=== PATIENT | female | born 1960 | race Caucasian/White ===

== ENCOUNTER 2016-12-26 10:40 | Day surgery (SDC) | payer BC ==
[~2016-12-26 10:40] MED LIST: Acetaminophen TAB* 325 MG PO PRN; Buffered Lidocaine 1% SYR 3ML* 3 ML/SYR SYRINGE INTRADERM ONE
[2016-12-26] MEDS ORDERED: Trypan Blue 0.06% SOL* 0.5 ML BTL ONE (11:31)
[2016-12-26] MEDS ORDERED: Midazolam* 1 MG/ML 5 ML VIAL (5 MG) ONE (11:43)
[2016-12-26] MEDS ORDERED: acetaZOLAMIDE TAB* 250 MG ONE (14:07)
[2016-12-26] MEDS ORDERED: Neomycin/Polymy/Dex OPTH.SUSP* MAXITROL 0.1% 5 ML ONE (14:07)
[2016-12-26] MEDS ORDERED: Proparacaine 0.5% OPHTH.SOL* 15 ML BTL ONE (14:07)
[2016-12-26] MEDS ORDERED: Povidone Iodine 5% OPTH* 30 ML BTL ONE (14:07)
[2016-12-26] MEDS ORDERED: Phenylephrine 2.5% OPTH.SOL* 2 ML BTL ONE (14:07)
[2016-12-26] MEDS ORDERED: Lidocaine 2% EPI 1:200000 MPF* 20 ML VIAL ONE (14:07)
[2016-12-26] MEDS ORDERED: Flurbiprofen 0.03% OPTH.SOL* 2.5 ML BTL ONE (14:07)
[2016-12-26] MEDS ORDERED: Cyclopentolate 1% OPTH.SOL* 2 ML BTL ONE (14:07)
[2016-12-26] MEDS ORDERED: Lidocaine 1% MPF* 2 ML VIAL ONE (14:07)
[2016-12-26 15:20] VITALS: BP 110/65
--- NOTE | 2016-12-26 22:25 | OP ---
DATE OF OPERATION: 12/26/16 - [facility] DATE OF : 56 SURGEON: Quan Felipe M.D. PREOPERATIVE DIAGNOSIS: Cataract, left eye. POSTOPERATIVE DIAGNOSIS: Cataract, left eye. OPERATIVE PROCEDURE: Phacoemulsification, left eye with IOL. DESCRIPTION OF PROCEDURE: The patient was brought to the operating room after being given 1/2% Alcaine with epinephrine drops in the preoperative area. The eye was prepped and draped in the usual sterile fashion. Sterile drape and eyelid speculum were placed. Again, topical 1/2% Alcaine with epinephrine was given. A paracentesis incision was made at the 3 o'clock position with the No.75 blade. Clear cornea incision 2.2 x 2.2-mm was created at the 6 o'clock position starting at the anterior limbus using the 2.2-mm keratome. The anterior chamber was irrigated with 0.4 mL of 1% non-preservative intracameral lidocaine and filled with DisCoVisc. A capsulorrhexis was completed using the cystotome and the Utrata forceps. Hydrodissection was performed with balanced salt solution. The lens nucleus was removed with the Phacoemulsification handpiece without incident. Cortex was removed with the irrigation-aspiration handpiece. The capsular bag was re-inflated using DisCoVisc and an [id number] implant was inserted with the shooter. VisionBlue was used to stain the anterior capsule prior to capsulorrhexis because there was a nearly white cataract. The irrigation-aspiration handpiece was used to remove all residual DisCoVisc. The eye was refilled with balanced salt solution and the wound checked and found to be watertight. Topical Maxitrol drops were given. Indication for complex cataract surgery: White cataract requiring capsular stain. [id number]/[facility] #: [id number] MTDRohini
== END 2016-12-26 14:49 | disposition home or self-care (01) ==
LOC: OREAST 10:40
PROVIDERS: ATTEND Specialist
DX: H25.812 Combined forms of age-related cataract, left eye (principal)
CPT/HCPCS: A9270-GY; J2250; V2632

== ENCOUNTER 2017-01-02 08:28 | Day surgery (SDC) | payer BC ==
[~2017-01-02 08:28] MED LIST changes: +Cyclopentolate 1% OPTH.SOL* 2 ML BTL ONE; +Flurbiprofen 0.03% OPTH.SOL* 2.5 ML BTL ONE; +Lidocaine 1% MPF* 2 ML VIAL ONE; +Lidocaine 2% EPI 1:200000 MPF* 20 ML VIAL ONE; +Neomycin/Polymy/Dex OPTH.SUSP* MAXITROL 0.1% 5 ML ONE; +Phenylephrine 2.5% OPTH.SOL* 2 ML BTL ONE; +Povidone Iodine 5% OPTH* 30 ML BTL ONE; +Proparacaine 0.5% OPHTH.SOL* 15 ML BTL ONE; +acetaZOLAMIDE TAB* 250 MG ONE
[2017-01-02] MEDS ORDERED: Trypan Blue 0.06% SOL* 0.5 ML BTL ONE (11:05)
[2017-01-02] MEDS ORDERED: Midazolam* 1 MG/ML 2 ML VIAL (2 MG) ONE ×2 (11:14→11:20)
[2017-01-02 12:00] VITALS: BP 101/65
--- NOTE | 2017-01-02 23:51 | OP ---
DATE OF OPERATION: 01/02/17 [facility] DATE OF : 56 SURGEON: Quan Felipe MD PREOPERATIVE DIAGNOSIS: Cataract, right eye. POSTOPERATIVE DIAGNOSIS: Cataract, right eye. OPERATIVE PROCEDURE: Phacoemulsification, right eye with IOL. DESCRIPTION OF PROCEDURE: The patient was brought to the operating room after being given 1/2% Alcaine with epinephrine drops in the preoperative area. The eye was prepped and draped in the usual sterile fashion. Sterile drape and eyelid speculum were placed. Again, topical 1/2% Alcaine with epinephrine was given. A paracentesis incision was made at the 9 o'clock position with the No.75 blade. Clear cornea incision 2.2 x 2.2-mm was created at the 12 o'clock position starting at the anterior limbus using the 2.2-mm keratome. The anterior chamber was irrigated with 0.4 mL of 1% non-preservative intracameral lidocaine and filled with DisCoVisc. A capsulorrhexis was completed using the cystotome and the Utrata forceps. Hydrodissection was performed with balanced salt solution. The lens nucleus was removed with the Phacoemulsification handpiece without incident. Cortex was removed with the irrigation-aspiration handpiece. The capsular bag was re-inflated using DisCoVisc and an [id number] implant was inserted with the shooter. The irrigation-aspiration handpiece was used to remove all residual DisCoVisc. The eye was refilled with balanced salt solution and the wound checked and found to be watertight. Topical Maxitrol drops were given. The VisionBlue was used to stain the anterior capsule prior to capsulorrhexis. The indication for complex cataract surgery is white cataract requiring capsular stain. [id number]/[facility] #: [id number] MTDD
== END 2017-01-02 11:56 | disposition home or self-care (01) ==
LOC: OREAST 08:28
PROVIDERS: ATTEND Specialist
DX: H25.811 Combined forms of age-related cataract, right eye (principal)
CPT/HCPCS: A9270-GY; J2250; V2632

== ENCOUNTER 2017-07-30 16:46 | Observation (INO) | payer BC ==
[2017-07-30] MEDS ORDERED: Ondansetron INJ* 2 MG/ML VIAL IV ONE (19:33)
[2017-07-30] MEDS ORDERED: Morphine INJ* 4 MG/ML 1 ML CARPUJECT IV ONE (19:33)
[2017-07-30] MEDS ORDERED: Acetaminophen TAB* 325 MG PO ONE (19:33)
[2017-07-30] MEDS ORDERED: Piperacillin/Tazobac ADVAN(*) 3.375 GM in NS 0.9% 100 ML* 100 ML IVPB ONE (19:35)
[2017-07-30 19:59] LABS: Urine Bacteria Absent (Absent); Urine Bilirubin Negative (Negative); Urine Glucose Negative (Negative); Urine Nitrite Negative (Negative)
[2017-07-30 20:09] LABS: Hematocrit 39 % (35-47); Mean Corpuscular HGB Conc 33 g/dl (31-36); Mean Corpuscular Hemoglobin 30 pg (27-31); Mean Corpuscular Volume 89 fL (80-97); Mean Platelet Volume 7 um3 (7.4-10.4); Red Blood Count 4.38 10^6/ul (4.0-5.4); Red Cell Distribution Width 13 % (10.5-15); White Blood Count 19.2 10^3/ul (3.5-10.8)
[2017-07-30 20:24] LABS: BUN/Creatinine Ratio 16.5 (8-20); C Reactive Protein 180.42 mg/L (< 5.00); Calcium 9.5 mg/dL (8.6-10.3); EGFR African American 88.3 (>60); EGFR Non-African American 68.7 (>60); Globulin 3.6 g/dL (2-4); Magnesium 1.9 mg/dL (1.9-2.7); Potassium 3.6 mmol/L (3.5-5.0); Total Bilirubin 0.6 mg/dL (0.2-1.0); Total Protein 7.6 g/dL (6.4-8.9)
[2017-07-30] MEDS: NS 0.9% 1000 ML* 2,000 ML IV ONE ×2 (20:38→22:08)
[2017-07-30] MEDS ORDERED: Ondansetron INJ* 2 MG/ML VIAL ONE (20:54)
[2017-07-30] MEDS ORDERED: Iohexol 300* (CONTRAST) 10 ML SDV IV ONE (21:10)
--- NOTE | 2017-07-30 22:28 | RAD ---
INDICATION: Right lower quadrant abdominal pain. COMPARISON: There are no prior studies available for comparison. TECHNIQUE: A CT scan of the abdomen and pelvis was performed with intravenous and oral contrast following intravenous injection of 87 ml of Omnipaque 300 nonionic contrast. Contiguous axial sections were obtained from the lung bases through the symphysis pubis. Images were reconstructed in the coronal and sagittal planes. FINDINGS: The lung bases are clear. No pleural effusion is present. The liver and spleen are normal in size. There is a small hypodense lesion in the lateral segment of the left hepatic lobe measures 0.7 cm in size which is too small to characterize by CT possibly representing a small cyst. No calcified gallstones are seen. The pancreas appears to be within normal limits. The kidneys and adrenal glands are normal in size. No hydronephrosis is seen. No significant focal renal abnormality is seen. The aorta is normal in caliber and demonstrates homogeneous contrast opacification. No significant enlarged retroperitoneal lymph nodes are seen. The stomach, small and large bowel appear nondistended. There is an inflammatory process present in the right lower quadrant. There is circumferential thickening of the wall of the terminal ileum stranding in the surrounding mesenteric fat. There is an appendicolith present adjacent to the cecum. The appendix is dilated with mild wall enhancement and poor definition of the wall. These findings are suspicious for a ruptured appendicitis. There is a small amount of ascites in the right lower quadrant and dependently within the pelvis. No free to peritoneal air is seen. No abscess is noted. The uterus is anteverted and normal in size. No significant focal osseous abnormality is seen. The results of this exam were discussed with the referring clinician. IMPRESSION: INFLAMMATORY PROCESS IN THE RIGHT LOWER QUADRANT MOST CONSISTENT WITH A RUPTURED APPENDICITIS.
[2017-07-30] MEDS ORDERED: NS 0.9% 1000 ML* 1,000 ML IV ONE (22:45)
[2017-07-30] MEDS ORDERED: ceFOXitin 2 GM IVPREMIX* 2 GM/50 ML BAG ONE (23:18)
--- NOTE | 2017-07-30 23:18 | ED ---
Cassy Foss Rebecca, scribed for Saloni Dumont MD on 07/30/17 at 1930 . Abdominal Pain/Female - HPI Summary HPI Summary: Pt is a 56 y/o F who presents to ED c/o abdominal pain. Sx began 2 days ago and have improved since onset. Initially, pain was severe and diffuse, that she could feel "working through the intestines," though now it has localized to the RLQ. Described as "intestinal pain" and ranked 8/10. Sx aggravated by movement, alleviated by nothing. Additionally c/o decreased appetite and subjective fever. Denies N/V/D, constipation. Last BM was yesterday. PSHx ectopic s/p tubal ligation, unsure of the side. No PMHx IBS. Last colonoscopy was 7-8 years ago. - History of Current Complaint Chief Complaint: EDAbdPain Stated Complaint: ABD PAIN/BLOATING Time Seen by Provider: 07/30/17 19:21 Hx Obtained From: Patient Onset/Duration: Lasting Days - 2 days, Still Present Severity Initially: Severe Severity Currently: Severe Pain Intensity: 8 Pain Scale Used: 0-10 Numeric Location: Discrete At: RLQ Character: Other: - "intestinal" Aggravating Factor(s): Movement Alleviating Factor(s): Nothing Associated Signs and Symptoms: Positive: Fever, Decreased Appetite. Negative: Nausea, Vomiting, Diarrhea Allergies/Adverse Reactions: Allergies Allergy/AdvReac Type Severity Reaction Status Date / Time Gabapentin [From Neurontin] Allergy Severe GI Upset, Verified 07/30/17 19:33 very severe headache PMH/Surg Hx/FS Hx/Imm Hx Endocrine/Hematology History: Denies: Hx Anticoagulant Therapy, Hx Diabetes, Hx Thyroid Disease Cardiovascular History: Reports: Hx Angina Denies: Hx Hypertension, Hx Pacemaker/ICD Respiratory History: Reports: Hx Asthma - as child- out grew Denies: Hx Chronic Obstructive Pulmonary Disease (COPD) GI History: Denies: Hx Irritable Bowel History: Denies: Hx Renal Disease Musculoskeletal History: Reports: Hx Arthritis - minor Sensory History: Reports: Hx Cataracts - both eyes Denies: Hx Contacts or Glasses, Hx Hearing Aid Opthamlomology History: Reports: Hx Cataracts - both eyes Denies: Hx Contacts or Glasses Neurological History: Reports: Hx Migraine - in the past Denies: Hx Dementia, Hx Seizures Psychiatric History: Reports: Hx Anxiety - in the past, cumulative stress - resolved, Hx Depression - resolved Denies: Hx Substance Abuse - Surgical History Surgery Procedure, Year, and Place: tubal ligation. tubal Hx Anesthesia Reactions: Yes - extreme nausea Infectious Disease History: No Infectious Disease History: Reports: Hx of Known/Suspected MRSA Denies: Hx Hepatitis, Hx Human Immunodeficiency Virus (HIV), Traveled Outside the [place] in Last 30 Days - Family History Known Family History: Negative: Diabetes - Social History Alcohol Use: Rare Substance Use Type: Reports: None Smoking Status (MU): Never Smoked Tobacco Review of Systems Positive: Fever Positive: Abdominal Pain, Other - Decreased appetite; NEGATIVE: Constipation. Negative: Vomiting, Diarrhea, Nausea All Other Systems Reviewed And Are Negative: Yes Physical Exam - Summary Physical Exam Summary: VITAL SIGNS: Reviewed. GENERAL: ~Patient is a well-developed and nourished female who is lying comfortable in the stretcher. Patient is not in any acute respiratory distress. HEAD AND FACE: No signs of trauma. No ecchymosis, hematomas or skull depressions. No sinus tenderness. EYES: PERRLA, EOMI x 2, No injected conjunctiva, no nystagmus. EARS: Hearing grossly intact. Ear canals and tympanic membranes are within normal limits. MOUTH: Oropharynx within normal limits. NECK: Supple, trachea is midline, no adenopathy, no JVD, no carotid bruit, no c- spine tenderness, neck with full ROM. CHEST: Symmetric, no tenderness at palpation LUNGS: Clear to auscultation bilaterally. No wheezing or crackles. CVS: Regular rate and rhythm, S1 and S2 present, no murmurs or gallops appreciated. ABDOMEN: Soft with RLQ tenderness. No signs of distention. No rebound no guarding, and no masses palpated. Bowel sounds are normal. EXTREMITIES: FROM in all major joints, no edema, no cyanosis or clubbing. NEURO: Alert and oriented x 3. No acute neurological deficits. Speech is normal and follows commands. SKIN: Dry and warm Triage Information Reviewed: Yes Vital Signs On Initial Exam: Initial Vitals Temp Pulse Resp BP Pulse Ox 99.0 F 82 16 133/83 100 07/30/17 16:49 07/30/17 16:49 07/30/17 16:49 07/30/17 16:49 07/30/17 16:49 Vital Signs Reviewed: Yes Diagnostics - Vital Signs Vital Signs Temp Pulse Resp BP Pulse Ox 07/30/17 16:49 99.0 F 82 16 133/83 100 - Laboratory Lab Results: Lab Results 07/30/17 07/30/17 07/30/17 Range/Units 19:20 19:50 19:50 WBC (3.5-10.8) 10^3/ul RBC (4.0-5.4) 10^6/ul Hgb (12.0-16.0) g/dl Hct (35-47) % MCV (80-97) fL MCH (27-31) pg MCHC (31-36) g/dl RDW (10.5-15) % Plt Count (150-450) 10^3/ul MPV (7.4-10.4) um3 Neut % (Auto) (38-83) % Lymph % (Auto) (25-47) % Spencer % (Auto) (1-9) % Eos % (Auto) (0-6) % Baso % (Auto) (0-2) % Absolute Neuts (auto) (1.5-7.7) 10^3/ul Absolute Lymphs (auto) (1.0-4.8) 10^3/ul Absolute Monos (auto) (0-0.8) 10^3/ul Absolute Eos (auto) (0-0.6) 10^3/ul Absolute Basos (auto) (0-0.2) 10^3/ul Absolute Nucleated RBC 10^3/ul Nucleated RBC % INR (Anticoag Therapy) 1.10 H (0.77-1.02) APTT 29.5 (26.0-36.3) seconds Sodium 133 (133-145) mmol/L Potassium 3.6 (3.5-5.0) mmol/L Chloride 99 L (101-111) mmol/L Carbon Dioxide 25 (22-32) mmol/L Anion Gap 9 (2-11) mmol/L BUN 14 (6-24) mg/dL Creatinine 0.85 (0.51-0.95) mg/dL Est GFR ( Amer) 88.3 (>60) Est GFR (Non-Af Amer) 68.7 (>60) BUN/Creatinine Ratio 16.5 (8-20) Glucose 125 H (70-100) mg/dL Lactic Acid (0.5-2.0) mmol/L Calcium 9.5 (8.6-10.3) mg/dL Magnesium 1.9 (1.9-2.7) mg/dL Total Bilirubin 0.60 (0.2-1.0) mg/dL AST 14 (13-39) U/L ALT 12 (7-52) U/L Alkaline Phosphatase 55 (34-104) U/L Total Creatine Kinase 61 (10-223) U/L C-Reactive Protein 180.42 H (< 5.00) mg/L Total Protein 7.6 (6.4-8.9) g/dL Albumin 4.0 (3.2-5.2) g/dL Globulin 3.6 (2-4) g/dL Albumin/Globulin Ratio 1.1 (1-3) Amylase 42 (29-103) U/L Lipase 12 (11.0-82.0) U/L Urine Color Yellow Urine Appearance Cloudy Urine pH 5.0 (5-9) Ur Specific [place] 1.026 (1.010-1.030) Urine Protein 2+(100 mg/dl) H (Negative) Urine Ketones 1+ H (Negative) Urine Blood 3+ H (Negative) Urine Nitrate Negative (Negative) Urine Bilirubin Negative (Negative) Urine Urobilinogen Negative (Negative) Ur Leukocyte Esterase 1+ H (Negative) Urine WBC (Auto) 1+(6-10/hpf) H (Absent) Urine RBC (Auto) 3+(>10/hpf) H (Absent) Ur Squamous Epith Cells Present H (Absent) Urine Bacteria Absent (Absent) Urine Glucose Negative (Negative) Blood Type Antibody Screen 07/30/17 07/30/17 07/30/17 Range/Units 19:50 19:50 19:50 WBC 19.2 H (3.5-10.8) 10^3/ul RBC 4.38 (4.0-5.4) 10^6/ul Hgb 13.0 (12.0-16.0) g/dl Hct 39 (35-47) % MCV 89 (80-97) fL MCH 30 (27-31) pg MCHC 33 (31-36) g/dl RDW 13 (10.5-15) % Plt Count 250 (150-450) 10^3/ul MPV 7 L (7.4-10.4) um3 Neut % (Auto) 84.3 H (38-83) % Lymph % (Auto) 7.9 L (25-47) % Spencer % (Auto) 7.7 (1-9) % Eos % (Auto) 0 (0-6) % Baso % (Auto) 0.1 (0-2) % Absolute Neuts (auto) 16.1 H (1.5-7.7) 10^3/ul Absolute Lymphs (auto) 1.5 (1.0-4.8) 10^3/ul Absolute Monos (auto) 1.5 H (0-0.8) 10^3/ul Absolute Eos (auto) 0 (0-0.6) 10^3/ul Absolute Basos (auto) 0 (0-0.2) 10^3/ul Absolute Nucleated RBC 0 10^3/ul Nucleated RBC % 0 INR (Anticoag Therapy) (0.77-1.02) APTT (26.0-36.3) seconds Sodium (133-145) mmol/L Potassium (3.5-5.0) mmol/L Chloride (101-111) mmol/L Carbon Dioxide (22-32) mmol/L Anion Gap (2-11) mmol/L BUN (6-24) mg/dL Creatinine (0.51-0.95) mg/dL Est GFR ( Amer) (>60) Est GFR (Non-Af Amer) (>60) BUN/Creatinine Ratio (8-20) Glucose (70-100) mg/dL Lactic Acid 1.1 (0.5-2.0) mmol/L Calcium (8.6-10.3) mg/dL Magnesium (1.9-2.7) mg/dL Total Bilirubin (0.2-1.0) mg/dL AST (13-39) U/L ALT (7-52) U/L Alkaline Phosphatase (34-104) U/L Total Creatine Kinase (10-223) U/L C-Reactive Protein (< 5.00) mg/L Total Protein (6.4-8.9) g/dL Albumin (3.2-5.2) g/dL Globulin (2-4) g/dL Albumin/Globulin Ratio (1-3) Amylase (29-103) U/L Lipase (11.0-82.0) U/L Urine Color Urine Appearance Urine pH (5-9) Ur Specific [place] (1.010-1.030) Urine Protein (Negative) Urine Ketones (Negative) Urine Blood (Negative) Urine Nitrate (Negative) Urine Bilirubin (Negative) Urine Urobilinogen (Negative) Ur Leukocyte Esterase (Negative) Urine WBC (Auto) (Absent) Urine RBC (Auto) (Absent) Ur Squamous Epith Cells (Absent) Urine Bacteria (Absent) Urine Glucose (Negative) Blood Type A Positive Antibody Screen Pending Result Diagrams: 07/30/17 19:50 07/30/17 19:50 Lab Statement: Any lab studies that have been ordered have been reviewed, and results considered in the medical decision making process. - CT CT Abd/Pel CT Interpretation: Positive (See Comments) - INFLAMMATORY PROCESS IN THE RIGHT LOWER QUADRANT MOST CONSISTENT WITH A RUPTURED APPENDICITIS. Dr. Dumont reviewed this radiology report. CT Interpretation Completed By: Radiologist - EKG 2256 Cardiac Rate: NL EKG Rhythm: Sinus Rhythm ST Segment: Non-Specific EKG Interpretation: 76 bpm. Non-specific T wave changes. Normal axis. Normal interval. Re-Evaluation - Re-Evaluation First Eval Re-Evaluation Time: 22:45 Comment: Discussed CT reuslts and plan to go ot the O.R. Abdominal Pain Fem Course/Dx - Course Course Of Treatment: Pt is a 56 y/o F who presents to ED c/o abdominal pain for 2 days ago, improving since onset. Initially, pain was severe and diffuse, now localized to the RLQ. Described as "intestinal pain" and ranked 8/10. Sx aggravated by movement. Additionally c/o decreased appetite and subjective fever. Denies N/V/D, constipation. Last BM was yesterday. PSHx ectopic s/p tubal ligation, unsure of the side. No PMHx IBS. CT Abd/Pel reveals an inflammatory process in the RLQ, likely indicative of a ruptured appendicitis. Discussed care of pt with Dr. Del Castillo who accepts pt with Dx of appendicitis. Allergy noted. - Diagnoses Provider Diagnoses: Perforated appendicitis - Provider Notifications Discussed Care Of Patient With: Sinan Del Castillo Time Discussed With Above Provider: 22:27 Instructed by Provider To: Other - Will call back after the CT report is in. Called back at 2245 and he accepts the pt for admission to the O.R. Discharge - Discharge Plan Condition: Stable Disposition: ADMITTED TO [facility] Referrals: Ras Rico MD [Primary Care Provider] - The documentation as recorded by the Cassy joel Rebecca accurately reflects the service I personally performed and the decisions made by me, Saloni Dumont MD.
[2017-07-30] MEDS ORDERED: Sodium Citrate/Citric Acid* 15 ML UDC ONE (23:33)
[2017-07-30] MEDS ORDERED: Propofol* 10 MG/ML 20 ML BTL IV PUSH ONE (23:42)
[2017-07-30] MEDS ORDERED: Lidocaine 2% PF * 5 ML VIAL ONE (23:42)
[2017-07-30] MEDS ORDERED: Cisatracurium* 2 MG/ML MDV 5 ML ONE (23:43)
[2017-07-30] MEDS ORDERED: fentaNYL* 50 MCG/ML 2 ML VIAL (100 MCG VIAL) ONE (23:44)
[2017-07-30] MEDS ORDERED: Bupivacaine 0.5% SDV PF* 30 ML VIAL ONE (23:46)
[2017-07-31] MEDS ORDERED: fentaNYL* 50 MCG/ML 2 ML VIAL (100 MCG VIAL) IV PRN (00:22)
[2017-07-31] MEDS ORDERED: Ketorolac INJ* 30 MG/ML 1 ML VIAL IV PRN (00:22)
[2017-07-31] MEDS ORDERED: DiMENhydriNATE IV* 50 MG/ML VIAL IV PUSH PRN (00:22)
[2017-07-31] MEDS ORDERED: Glycopyrrolate IV* 0.2 MG/ML 1 ML VIAL ONE (00:23)
[2017-07-31] MEDS ORDERED: Neostigmine Methylsulfate* 2 MG/2 ML SYRINGE ONE (00:23)
[2017-07-31] MEDS ORDERED: HYDROmorphone INJ* 1 MG/ML CARPUJECT SYRINGE IV PRN (00:50)
[2017-07-31] MEDS ORDERED: Ibuprofen TAB* 600 MG PO PRN (00:50)
[2017-07-31] MEDS ORDERED: Acetaminophen TAB* 325 MG PO PRN (00:50)
[2017-07-31] MEDS ORDERED: Ondansetron INJ* 2 MG/ML VIAL IV PRN (00:50)
--- NOTE | 2017-07-31 00:59 | SURGPN ---
Brief Operative Note - Surgery Procedures: PREOP DX: ACUTE APPENDICITIS POSTOP DX: PERFORATED APPENDICITIS PROC: LAPAROSCOPIC APPENDECTOMY AND DRAIN PLACEMENT SURG: MECENAS ASSIST: NONE ANES: GET/ESTEVES EBL: <20ML IVF: 1350ML LR SPEC: APPENDIX DRAIN: 7MM KURT COMPL: NONE COND: STABLE TO RR; EXTUBATED. FIND: PERFORATED APPENDICITIS WITH FECALITH. SECONDARY INFLAMMATION OF TERMINAL ILEUM.
[2017-07-31] MEDS ORDERED: fentaNYL* 50 MCG/ML 2 ML VIAL (100 MCG VIAL) ONE (01:19)
[2017-07-31] MEDS ORDERED: Ketorolac INJ* 30 MG/ML 1 ML VIAL ONE (01:20)
[2017-07-31] MEDS: NS 0.9% 1000 ML* 1,000 ML IV SCH ×2 (02:00→09:30)
[2017-07-31] MEDS: Piperacillin/Tazobactam VIAL*) 3.375 GM in NS 0.9% 100 ML* 100 ML IVPB SCH ×3 (04:00→20:42)
[2017-07-31] MEDS: oxyCODONE/Acetamin 5/325 MG* TAB PO PRN ×2 (04:06→15:08)
--- NOTE | 2017-07-31 07:24 | RAD ---
INDICATION: Preoperative study. COMPARISON: Comparison is made with a prior chest x-ray study from July 21, 2014. TECHNIQUE: A portable view of the chest was obtained. FINDINGS: Cardiac and mediastinal contours appear to be within normal limits. The lungs are clear. No pleural effusion is seen. IMPRESSION: NO EVIDENCE FOR ACUTE DISEASE.
--- NOTE | 2017-07-31 12:25 | OP ---
CC: Ras Rico MD * DATE OF SURGERY: 07/31/17 - ROOM #349 DATE OF : 56 SURGEON: Dr. Del Castillo. WRAPPING CLERK: None. ANESTHESIOLOGIST: Dr. Sandhu. ANESTHESIA: General endotracheal. PRE-OP DIAGNOSIS: Acute appendicitis. POST-OP DIAGNOSIS: Perforated appendicitis. OPERATIVE PROCEDURE: Laparoscopic appendectomy and drain placement. ESTIMATED BLOOD LOSS: Less than 20 mL. IV FLUIDS: 1350 mL Lactated Ringer's. DRAINS: A 7-mm Hector-Ulloa. COMPLICATIONS: None. COUNTS: Instrument, needle, sponge counts were correct. DESCRIPTION OF PROCEDURE: The patient was brought to the operating room and placed on the table supine. Sequential compression devices were placed on both lower extremities. General anesthesia was administered. Her abdomen was prepped and draped in the usual sterile fashion. She received appropriate intravenous antibiotics. Time-out was performed. Local anesthetic was infiltrated in the periumbilical tissues and a transumbilical vertical incision was created and using an open technique a 12- mm trocar was placed. Carbon dioxide was insufflated to a pressure of 15 mmHg. Under direct visualization, 5-mm trocars were placed in the suprapubic midline and in the left lower quadrant. There was a mass of omentum in the right lower quadrant adherent to the ileocecal region. The omentum was retracted cephalad. The appendix was inflamed and adherent to the mesentery of the adjacent terminal ileum and in peeling this away, it was noted that there was stool leaking from the appendix and findings were that of a perforated appendicitis. The appendix was dissected free from the secondarily inflamed ileum. The appendix was perforated and gangrenous along its distal two-thirds, the proximal one-third at the cecum appeared to be intact. A window was created in the mesentry at this point and the appendix was divided at the base of the cecum with Endo PIETER stapler with a tena cartridge. The mesentery of the appendix was divided with the Endo PIETER stapler with a harrell cartridge. The appendix was placed into an endoscopic retrieval bag and retrieved through the umbilical site. Copious lavage of the abdomen was performed with 4 L of warm saline. A 7-mm Hector-Ulloa drain was placed into the pelvis and adjacent to the appendiceal stump. The drain was withdrawn to the suprapubic port and the drain was sutured with 3-0 Prolene. All remaining trocars were removed under direct visualization. Carbon dioxide was released. The umbilicus was closed with 0 Polysorb in an interrupted fashion to approximate the fascia. Skin was closed with 4-0 Monocryl in interrupted subcuticular fashion. Steri-Strips were placed on the left lower quadrant wound. Dry gauze dressings were placed in the umbilical wound and also at the drain site. The drain was placed to suction bulb. The patient was extubated uneventfully. She was transferred to the recovery room in a stable condition. [id number]/[facility] #: [id number] SHRAVAN
[2017-08-01] MEDS: Piperacillin/Tazobactam VIAL*) 3.375 GM in NS 0.9% 100 ML* 100 ML IVPB SCH ×2 (03:32→13:14)
--- NOTE | 2017-08-01 11:43 | PN ---
Progress Note - Progress Note Date of Service: 08/01/17 Note: Surgery Progress: (see discharge summary) S: POD 2. Doing well. Pain controlled. Rosario diet. Passing flatus as well as small BM this a.m. (loose). O: Vital Signs - 8 hr 08/01/17 08/01/17 07:34 08:00 Temperature 98.3 F Pulse Rate 66 Respiratory 17 17 Rate Blood Pressure 111/65 (mmHg) O2 Sat by Pulse 97 Oximetry Intake and Output Last 24 Hours 07/30/17 07/31/17 08/01/17 08/02/17 06:59 06:59 06:59 06:59 Intake Total 5325 3774 225 Output Total 170 1125 300 Balance 5155 2649 -75 Weight 143 lb Intake: IV Fluids 4950 2094 ABX - PIPERACILLIN 115 LR 800 NS 995 NS 50ML, Cefoxitin 2G 50 IVPB 220 Medicated IV 110 Zosyn 110 Oral 375 1350 225 Output: KURT #1 170 75 Urine 0 1050 300 Other: Estimated Void Large Medium # Bowel Movements 0 1 Estimated Stool Amount Large # Voids 1 3 Gen: NAD Heart: reg Lungs: clear Abd: +BS; lap incisions clean; small amt drainage around drain site; KURT drain w / cloudy light tena fluid (discussed /w Dr. Del Castillo; will d/c home w/ drain) A: s/p lap appendectomy for ruptured appendicitis, doing well P: home today w/ drain; cont Augmentin 875 mg BID x 10d; office f/u Mon. 08/05 for drain removal
[2017-08-01 13:41] VITALS: BP 115/65
--- NOTE | 2017-08-01 21:03 | DS ---
CC: Dr. Ras Rico * DISCHARGE SUMMARY: DATE OF ADMISSION: 07/31/17 DATE OF DISCHARGE: 08/01/17 ATTENDING SURGEON: Dr. Sinan Del Castillo * (DICTATED BY ORALIA PILLAI) HOSPITAL COURSE: Please refer to admission history and physical for admission details. The patient was taken to the operating room early the morning of 07/[address] Del Castillo where she underwent laparoscopic appendectomy for acute ruptured appendicitis (see separate operative report). A Hector Ulloa drain was placed. The patient has had an uneventful recovery and as on the morning of discharge, pain is well controlled and she is tolerating regular diet. She is passing flatus and has had a small bowel movement. PHYSICAL EXAMINATION: Vital Signs: Temperature 98.3, blood pressure 111/65, pulse 66, respirations 17, room air saturation 97%. General: Well nourished, well developed and in no acute distress. Skin: Warm and dry. Heart: Regular rate and rhythm. Lungs: Clear to auscultation. Abdomen: Bowel sounds present. Laparoscopic incision sites are clean. There is a small amount of drainage around the KURT site. The KURT drain itself was draining moderate amount of light tena cloudy fluid and therefore will be left in place for possible removal at followup on 08/05/17. IMPRESSION: Status post laparoscopic appendectomy for acute ruptured appendicitis, doing well. PLAN: Discharge home today on 10 days of Augmentin 875 mg b.i.d. and with Hector- Ulloa drain with followup scheduled for 08/05/17. ORALIA PILLAI [id number]/[facility] #: [id number] [facility]
== END 2017-08-01 14:25 | disposition home or self-care (01) ==
LOC: ED 16:46 → OR 23:32 → SSU 07-31 02:14
PROVIDERS: ADMIT Surgery; ATTEND Surgery
DX: K35.2 Acute appendicitis with generalized peritonitis (principal); R10.31 Right lower quadrant pain; R14.0 Abdominal distension (gaseous); R50.81 Fever presenting with conditions classified elsewhere; R63.0 Anorexia
CPT/HCPCS: 36415; 71010; 74177; 80053; 81003; 81015; 82150; 82550; 83605; 83690; 83735; 85025; 85610; 85730; 86140; 86850; 86900; 86901; 87040; 87086; 88304; 93005; 96361; 96374; 99284; A9270-GY; C1776; G0378; J0694; J1885; J2270; J2405; J2543; J2704; J3010; Q9967

== ENCOUNTER 2019-08-17 13:39 | Emergency (ER) | payer BC ==
[2019-08-17 14:01] LABS: ABS Eosinophils 0.1 10^3/ul (0-0.6); ABS Lymphocytes 2.9 10^3/ul (1.0-4.8); ABS Monocytes 0.6 10^3/ul (0-0.8); ABS Neutrophils 3.2 10^3/ul (1.5-7.7); Eosinophil % 1.9 %; Hematocrit 38 % (35-47); Hemoglobin 12.8 g/dL (12.0-16.0); Lymphocyte % 42.2 %; Mean Corpuscular HGB Conc 34 g/dL (31-36); Mean Corpuscular Hemoglobin 30 pg (27-31); Mean Corpuscular Volume 89 fL (80-97); Nucleated Red Blood Cells % 0.1; Platelet Count 271 10^3/uL (150-450); Red Blood Count 4.22 10^6 /uL (3.70-4.87); Red Cell Distribution Width 13 % (10-15); White Blood Count 6.9 10^3/uL (3.5-10.8)
[2019-08-17 14:15] LABS: INR 0.9 (0.82-1.09)
--- NOTE | 2019-08-17 14:23 | ED ---
HPI Chest Pain - HPI Summary HPI Summary: This pt is a 58 y/o female presenting to [facility] c/o intermittent left sided chest pain since 2 days ago. Pt reports she had worst chest pain 2 days ago on 08/15/19 accompanied with jaw ache and flushing. She notes today when she began vacuuming she began to have mild left sided chest pressure. She states associated symptoms of jaw ache and left wrist ache. Denies swelling of ankles, nausea, vomiting. Pt states she has been having "bad heart burn" for the past 1 month. 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 and has to " outlast him." - History of Current Complaint Chief Complaint: EDChestPainROMI Time Seen by Provider: 08/17/19 14:16 Hx Obtained From: Patient Onset/Duration: Started Days Ago, Still Present Timing: Intermittent, Lasting Days Current Severity: Mild Pain Intensity: 2 Pain Scale Used: 0-10 Numeric Chest Pain Location: Left Anterior Chest Pain Radiates: No Chest Pain Radiates To:: Arm Character: Pressure/Squeezing - pressure Aggravating Factor(s): Nothing Alleviating Factor(s): Nothing Associated Signs and Symptoms: Positive: Chest Pain, Recent Stress, Other: - POSITIVE: jaw pain, left wrist pain, heart burn. Negative: Swelling, Fever, Chills, Nausea, Calf Pain/Swelling, Vomiting - Additional Pertinent History Primary Care Physician: [id number] - Allergy/Home Medications Allergies/Adverse Reactions: Allergies Allergy/AdvReac Type Severity Reaction Status Date / Time gabapentin Allergy GI Upset Verified 04/26/18 14:05 Home Medications: Home Medications Amino Acids [Amino Acid] 1 each PO DAILY 08/17/19 [History Confirmed 08/17/19] Cholecalciferol TAB* [Vitamin D TAB*] 1,000 unit PO DAILY 08/17/19 [History Confirmed 08/17/19] Cyanocobalamin TAB* [Vitamin B12 TAB*] 500 mcg PO DAILY 08/17/19 [History Confirmed 08/17/19] Lecithin [Gram-O-Leci] 1,000 mg PO DAILY 08/17/19 [History Confirmed 08/17/19] Emmons-3 Fatty Acids (Nf) [Fish Oil (NF)] 1,000 mg PO DAILY 08/17/19 [History Confirmed 08/17/19] Pyridoxine TAB* [Vitamin B6 TAB*] 50 mg PO DAILY 08/17/19 [History Confirmed ] Vitamin B Complex CAP* [B Complex CAP*] 1 cap PO DAILY 08/17/19 [History Confirmed 08/17/19] PMH/Surg Hx/FS Hx/Imm Hx Endocrine/Hematology History: Denies: Hx Anticoagulant Therapy, Hx Diabetes, Hx Thyroid Disease Cardiovascular History: Reports: Hx Angina Denies: Hx Hypertension, Hx Pacemaker/ICD Respiratory History: Reports: Hx Asthma - as child- out grew Denies: Hx Chronic Obstructive Pulmonary Disease (COPD) GI History: Denies: Hx Irritable Bowel History: Denies: Hx Renal Disease Musculoskeletal History: Reports: Hx Arthritis - minor Sensory History: Reports: Hx Cataracts - both eyes Denies: Hx Contacts or Glasses, Hx Hearing Aid Opthamlomology History: Reports: Hx Cataracts - both eyes Denies: Hx Contacts or Glasses Neurological History: Reports: Hx Migraine - in the past Denies: Hx Dementia, Hx Seizures Psychiatric History: Reports: Hx Anxiety - in the past, cumulative stress - resolved, Hx Depression - resolved Denies: Hx Substance Abuse - Surgical History Surgical History: Yes Surgery Procedure, Year, and Place: tubal ligation. tubal Hx Anesthesia Reactions: Yes - extreme nausea - Immunization History Date of Influenza Vaccine: has not yet received Infectious Disease History: No Infectious Disease History: Reports: Hx of Known/Suspected MRSA Denies: Hx Hepatitis, Hx Human Immunodeficiency Virus (HIV), Traveled Outside the [place] in Last 30 Days - Family History Known Family History: Negative: Diabetes - Social History Alcohol Use: Rare Substance Use Type: Reports: None Smoking Status (MU): Never Smoked Tobacco Review of Systems Constitutional: Other - POSITIVE: recent stress Negative: Fever ENT: Other - POSITIVE: jaw ache Positive: Chest Pain Gastrointestinal: Other - POSITIVE: heart burn Negative: Vomiting, Nausea Musculoskeletal: Other - POSITIVE: left wrist pain Negative: Edema All Other Systems Reviewed And Are Negative: Yes Physical Exam - Summary Physical Exam Summary: Appearance: The patient is well-nourished in no acute distress and in no acute pain. Skin: The skin is warm and dry and skin color reflects adequate perfusion. HEENT: The head is normocephalic and atraumatic. The pupils are equal and reactive. The conjunctivae are clear and without drainage. Nares are patent and without drainage. Mouth reveals moist mucous membranes and the throat is without erythema and exudate. The external ears are intact. The ear canals are patent and without drainage. The tympanic membranes are intact. Neck: the neck is supple with full range of motion and non-tender. There are no carotid bruits. There is no neck vein distension. Respiratory: Chest is non-tender. Lungs are clear to auscultation and breath sounds are symmetrical and equal. Cardiovascular: Heart is regular rate and rhythm. There is no murmur or rub auscultated. There is no peripheral edema and pulses are symmetrical and equal. Abdomen: The abdomen is soft and non-tender. There are normal bowel sounds heard in all four quadrants and there is no organomegaly palpated. Musculoskeletal: There is no back tenderness noted. Extremities are non-tender with full range of motion. There is good capillary refill. There is no peripheral edema or calf tenderness elicited. Neurological: Patient is alert and oriented to person, place and time. The patient has symmetrical motor strength in all four extremities. Cranial nerves are grossly intact. Deep tendon reflexes are symmetrical and equal in all four extremities. Psychiatric: The patient has an appropriate affect and does not exhibit any anxiety or depression. Triage Information Reviewed: Yes Vital Signs On Initial Exam: Initial Vitals Temp Pulse Resp BP Pulse Ox 97.8 F 82 18 158/76 100 08/17/19 13:50 08/17/19 13:50 08/17/19 13:50 08/17/19 13:50 08/17/19 13:50 Vital Signs Reviewed: Yes Procedures - Sedation Patient Received Moderate/Deep Sedation with Procedure: No Diagnostics - Vital Signs Vital Signs Temp Pulse Resp BP Pulse Ox 08/17/19 13:50 97.8 F 82 18 158/76 100 - Laboratory Lab Results: Lab Results 08/17/19 08/17/19 Range/Units 13:54 13:54 WBC 6.9 (3.5-10.8) 10^3/uL RBC 4.22 (3.70-4.87) 10^6 /uL Hgb 12.8 (12.0-16.0) g/dL Hct 38 (35-47) % MCV 89 (80-97) fL MCH 30 (27-31) pg MCHC 34 (31-36) g/dL RDW 13 (10-15) % Plt Count 271 (150-450) 10^3/uL MPV 7.0 L (7.4-10.4) fL Neut % (Auto) 46.8 % Lymph % (Auto) 42.2 % [place] % (Auto) 8.7 % Eos % (Auto) 1.9 % Baso % (Auto) 0.4 % Absolute Neuts (auto) 3.2 (1.5-7.7) 10^3/ul Absolute Lymphs (auto) 2.9 (1.0-4.8) 10^3/ul Absolute Monos (auto) 0.6 (0-0.8) 10^3/ul Absolute Eos (auto) 0.1 (0-0.6) 10^3/ul Absolute Basos (auto) 0.0 (0-0.2) 10^3/ul Absolute Nucleated RBC 0.0 10^3/ul Nucleated RBC % 0.1 INR (Anticoag Therapy) 0.90 (0.82-1.09) Result Diagrams: 08/17/19 13:54 08/17/19 13:54 Lab Statement: Any lab studies that have been ordered have been reviewed, and results considered in the medical decision making process. - EKG 1239 Cardiac Rate: NL - at 76 bpm EKG Rhythm: Sinus Rhythm 1344 Cardiac Rate: NL EKG Rhythm: Sinus Rhythm EKG Comparison: Other - unchanged from prior EKG on 05/06/18 Summary of EKG Findings: EKG at 1344 shows normal sinus rhythm at a rate of 76 bpm. Non specific T wave inversion, unchanged from prior on 05/06/18. Re-Evaluation - Re-Evaluation First Eval Re-Evaluation Time: 18:07 Comment: Reviewed results with pt. She will be discharged home. Chest Pain Course/Dx - Course Course Of Treatment: She was kept on the monitor here while she was evaluated with EKG, chest x-ray and labs including a delayed troponin. Everything was in order and I recommended she follow up with her PCP for further evaluation. I don't think anything dangerous happening at this time. - Diagnoses Provider Diagnoses: Chest pain Discharge ED - Sign-Out/Discharge Documenting (check all that apply): Patient Departure - Discharge home - Discharge Plan Condition: Stable Disposition: HOME Patient Education Materials: Chest Pain (ED) Referrals: Ras Rico MD [Primary Care Provider] - Additional Instructions: Follow up with your primary care provider in 2-3 days. RETURN TO THE ED FOR ANY WORSENING OR NEW SYMPTOMS. - Billing Disposition and Condition Condition: STABLE Disposition: Home - Attestation Statements Document Initiated by Jeannetteibe: Yes Documenting Scribe: Izzy Panchal Provider For Whom Scribe is Documenting (Include Credential): Nathan Britt MD Scribe Attestation: Izzy Foss, scribed for Nathan Britt MD on 08/17/19 at 2058. Scribe Documentation Reviewed: Yes Provider Attestation: The documentation as recorded by the Izzy joel accurately reflects the service I personally performed and the decisions made by me, Nathan Britt MD Status of Scribe Document: Viewed
[2019-08-17 14:25] LABS: Albumin 3.9 g/dL (3.2-5.2); Albumin/Globulin Ratio 1.3 (1-3); BUN/Creatinine Ratio 20.7 (8-20); Calcium 9.1 mg/dL (8.6-10.3); EGFR Non-African American 71.1 (>60); Globulin 3.1 g/dL (2-4); Potassium 3.9 mmol/L (3.5-5.0); Total Bilirubin 0.3 mg/dL (0.2-1.0)
[2019-08-17 18:21] VITALS: BP 169/89
== END 2019-08-17 18:20 | disposition home or self-care (01) ==
LOC: ED 13:39
DX: R07.9 Chest pain, unspecified (principal); Z79.899 Other long term (current) drug therapy; Z88.8 Allergy status to other drugs, medicaments and biological substances; Z98.51 Tubal ligation status
CPT/HCPCS: 36415; 80053; 84484; 85025; 85610; 93005; 99283